=== PATIENT | male | born 1935 | race Caucasian/White ===

== ENCOUNTER → 2016-12-06 | Outpatient (CLI) | payer MEDICARE ==
[~2016-12-06] MED LIST: AMLO5TAB96 PO; ASPI81 PO; AVANDAMET PO; CLOP75 PO; IMDU60TA PO; ISOS40TA4 PO; LIPI40TA PO; LORTA5 PO; NITR0.4S SL; RAMI5CAP7 PO; REPA.5 PO; TAMS0.4C67 PO; TOPR25TA2 PO
--- NOTE | 2016-12-12 08:23 | RSPPFT ---
DATE OF PROCEDURE: 12/06/16 COMMENTS: VOLUMES DYNAMIC: FVC and FEV1 normal. STATIC: FRC, RV normal; TLC mildly reduced. FLOWS: FEv1% and FEF 25-75 normal. DIFFUSION: Mildly reduced. FLOW VOLUME LOOP: Normal configuration. IMPRESSION: Essentially normal pulmonary functions although there is a mild reduction in the total lung capacity and a mild reduction in diffusion with clinical correlation required. No significant airways obstruction and no significant improvement post-bronchodilator.
== END ==
LOC: HRSP 11:17
PROVIDERS: ATTEND Internal Medicine
DX: J43.9 Emphysema, unspecified (principal); R06.02 Shortness of breath
CPT/HCPCS: 94060; 94620; 94726; 94729